=== PATIENT | female | born 2000 | race Caucasian/White ===

== ENCOUNTER 2020-12-06 10:43 | Outpatient (CLI) | payer BC | END 2020-12-06 10:44 | disposition home or self-care (01) | LOC: BICULT 10:43 | PROVIDERS: ATTEND Nurse Practitioner Family | DX: E24.0 Pituitary-dependent Cushing's disease (principal); E28.2 Polycystic ovarian syndrome; N94.6 Dysmenorrhea, unspecified; Z68.34 Body mass index [BMI] 34.0-34.9, adult | CPT/HCPCS: 76856 ==